=== PATIENT | female | born 1945 | race Caucasian/White ===

== ENCOUNTER → 2018-03-01 | Outpatient (CLI) | payer MEDICARE, BC | END | disposition home or self-care (01) | LOC: MRI 09:51 | DX: M75.101 Unspecified rotator cuff tear or rupture of right shoulder, not specified as traumatic (principal); M19.011 Primary osteoarthritis, right shoulder; S43.401A Unspecified sprain of right shoulder joint, initial encounter; M25.411 Effusion, right shoulder; M24.011 Loose body in right shoulder | CPT/HCPCS: 73221 ==

== ENCOUNTER → 2018-03-27 | Outpatient (CLI) | payer MEDICARE, BC ==
[~2018-03-27] MED LIST: AMLO5TAB2 PO; ASPI81TA50 PO; ATEN25TA PO; ATORVASTATIN CA80 MG PO; DOCU-150 PO; EZET10TA18 PO; FURO40TA4 PO; LOSA1TAB22 PO; METF500T5 PO; MULT1TAB52 PO; OMEG1CAP6 PO
[2018-03-27 10:44] LABS: BASO % 1 % (0-3); EOS # 0.2 x10^3/uL (0.0-0.7); EOS % 3 % (0-3); HEMOGLOBIN 13.7 g/dL (12.0-15.5); LYMPH # 1.5 x10^3/uL (1.0-4.8); LYMPH % 21 % (24-48); MEAN CORPUSCULAR HEMOGLOBIN 33 pg (25-35); MEAN CORPUSCULAR HGB CONC 33 g/dL (31-37); MEAN CORPUSCULAR VOLUME 98 fL (79-100); MONO # 0.7 x10^3/uL (0.0-1.1); MONO % 10 % (0-9); NEUT # 4.9 x10^3uL (1.8-7.7); NEUT % 67 % (31-73); PLATELET COUNT 206 x10^3/uL (140-400); RED BLOOD COUNT 4.17 x10^6/uL (3.50-5.40); RED CELL DISTRIBUTION WIDTH 13.5 % (11.5-14.5); WHITE BLOOD COUNT 7.3 x10^3/uL (4.0-11.0)
[2018-03-27 10:54] LABS: ALBUMIN 3.9 g/dL (3.4-5.0); CALCIUM 10.2 mg/dL (8.5-10.1); CREATININE 0.9 mg/dL (0.6-1.0); GFR 61.2; POTASSIUM 3.7 mmol/L (3.5-5.1)
[2018-03-27 11:09] LABS: BILIRUBIN,URINE NEGATIVE (NEG); CLARITY,URINE CLEAR; COLOR,URINE YELLOW; NITRITE,URINE NEGATIVE (NEG); PH,URINE 7.5; PROTEIN,URINE NEGATIVE (NEG-TRACE); UROBILINOGEN,URINE 0.2 mg/dL (0.2 mg/dL)
[2018-03-27 11:11] LABS: PROTHROMBIN TIME PATIENT 12.2 SEC (11.7-14.0)
[2018-03-27 12:01] LABS: BACTERIA,URINE 0 /HPF (0-FEW); RBC,URINE 0 /HPF (0-2); SQUAMOUS EPITHELIAL CELL,UR FEW /LPF; WBC,URINE 0 /HPF (0-4)
--- NOTE | 2018-03-27 12:04 | RAD ---
EXAM: Chest, 2 views. HISTORY: Pain. Preoperative evaluation. COMPARISON: None. FINDINGS: 2 views of the chest are obtained. There is linear lingular atelectasis or scarring. There is left infrahilar opacity likely due to atelectasis. There is no pleural effusion or pneumothorax. There is a prominent cardiac silhouette. There is S-shaped thoracolumbar scoliosis. IMPRESSION: 1. Suspected left infrahilar atelectasis and lingular atelectasis or scarring. 2. Prominent cardiac silhouette. Electronically signed by: Marlyn Mckenzie MD (03/27/2018 12:00 PM) [facility]
[2018-03-28 02:16] LABS: HEMOGLOBIN A1C 5.5 % (4.8-5.6)
== END | disposition home or self-care (01) ==
LOC: SURGPAT 10:18
PROVIDERS: ATTEND Orthopaedic Surgery Sports Medicine
DX: M41.85 Other forms of scoliosis, thoracolumbar region (principal); M19.011 Primary osteoarthritis, right shoulder
CPT/HCPCS: 36415; 71046; 80048; 81001; 82040; 83036; 85025; 85610; 85651; 85730; 87641

== ENCOUNTER 2018-04-10 05:47 | Inpatient (IN) | payer MEDICARE, BC ==
[2018-04-10] VITALS (8 sets, daily range): BP systolic 98–126; BP diastolic 52–67
[~2018-04-10] VITALS: Ht 152.4 cm; Wt 78.0 kg
[~2018-04-10 05:47] MED LIST changes: -AMLO5TAB2 PO; +AMLO5TAB7 PO; +METF500T16 PO; -METF500T5 PO
[2018-04-10] MEDS ORDERED: TV=100ml MORPHINE 5 MG, KETOROLAC 30 MG, ROPIVacaine 0.5% PF 60 ML, EPINEPH... INT ART ONE ×5 (06:00)
[2018-04-10] MEDS ORDERED: TRANEXAMIC ACID 1,000 MG in IV NS 50ML -- 1ST BAG INJ ONE (06:00)
[2018-04-10] MEDS ORDERED: HYDROcodone/APAP 7.5/325MG 1 TAB TABLET PO PRN (06:00)
[2018-04-10] MEDS ORDERED: MELOXICAM 7.5 MG TABLET PO PRN (06:00)
[2018-04-10] MEDS: IV RINGERS,LACTATED 1000ML 1,000 ML IV SCH ×2 (06:44→10:15)
[2018-04-10] MEDS ORDERED: PROCHLORPERAZINE 10 MG/2 ML VIAL. IV PRN (07:00)
[2018-04-10] MEDS ORDERED: MORPHINE SULFATE 2 MG/ML VIAL. IV PRN (07:00)
[2018-04-10] MEDS ORDERED: ONDANSETRON PF 4 MG/2 ML VIAL. IV PRN (07:00)
[2018-04-10] MEDS ORDERED: HYDROmorphone 2 MG/ML VIAL IV PRN (07:00)
[2018-04-10] MEDS ORDERED: LIDOCAINE 1% PF 2 ML VIAL. ID PRN (07:00)
[2018-04-10] MEDS ORDERED: fentaNYL PF VIAL 100 MCG/2 ML VIAL IV PRN ×2 (07:00)
[2018-04-10] MEDS ORDERED: fentaNYL PF VIAL 100 MCG/2 ML VIAL ONE (07:02)
[2018-04-10] MEDS ORDERED: PROPOFOL 20 ML IV ONE (07:02)
[2018-04-10] MEDS ORDERED: ROCURONIUM 50 MG/5 ML VIAL. ONE (07:03)
[2018-04-10] MEDS: IV DEXTROSE 5 %-0.45 % NACL 1,000 ML IV SCH ×2 (07:03→17:03)
[2018-04-10] MEDS ORDERED: ONDANSETRON PF 4 MG/2 ML VIAL. ONE (07:05)
[2018-04-10] MEDS ORDERED: DEXAMETHASONE SOD PHOS 20 MG/5 ML VIAL. ONE ×2 (07:05→07:22)
[2018-04-10] MEDS ORDERED: oxyCODONE/APAP 5/325 1 TAB TABLET PO PRN (07:15)
[2018-04-10] MEDS ORDERED: METOCLOPRAMIDE HCL 10 MG/2 ML VIAL. IV PRN (07:15)
[2018-04-10] MEDS ORDERED: oxyCODONE/APAP 7.5/325 1 TAB TABLET PO PRN (07:15)
[2018-04-10] MEDS ORDERED: ZOLPIDEM 5 MG TABLET. PO PRN (07:15)
[2018-04-10] MEDS ORDERED: 0.9 % SODIUM CHLORIDE 10 ML DISP.SYRIN. IV PRN (07:15)
[2018-04-10] MEDS ORDERED: ceFAZolin SODIUM 1 GM in IV DEXTROSE 5% 50 ML IV SCH (07:15)
[2018-04-10] MEDS ORDERED: PROCHLORPERAZINE 5 MG TABLET. PO PRN (07:15)
[2018-04-10] MEDS ORDERED: ACETAMINOPHEN 325 MG TABLET. PO PRN (07:15)
[2018-04-10] MEDS ORDERED: HYDROcodone/APAP 10/325 1 TAB TABLET PO PRN (07:15)
[2018-04-10] MEDS ORDERED: DEXTROSE 50% 25 GM / 50ML DISP.SYRIN. IV PRN (07:15)
[2018-04-10] MEDS ORDERED: traMADol 50 MG TABLET PO PRN ×2 (07:15)
[2018-04-10] MEDS ORDERED: CALCIUM CARBONATE 500 MG TAB.CHEW PO PRN (07:15)
[2018-04-10] MEDS ORDERED: MIDAZOLAM HCL/PF 2 MG/2 ML VIAL. ONE (07:21)
[2018-04-10] MEDS ORDERED: ROPIVacaine 0.2% IN 0.9%NACL PF 40 MG/20 ML DISP.SYRIN. ONE (07:22)
[2018-04-10] MEDS ORDERED: ePHEDrine PF IN SALINE 50 MG/5 ML DISP.SYRIN IV ONE (07:51)
[2018-04-10] MEDS ORDERED: PHENYLEPHRINE 10 MG/ML VIAL. ONE (07:59)
[2018-04-10] MEDS: metFORMIN 500 MG TABLET PO SCH ×2 (08:00→16:47)
[2018-04-10] MEDS ORDERED: TRANEXAMIC ACID 1,000 MG in IV NS 50ML -- 2ND BAG INJ ONE (08:00)
[2018-04-10] MEDS ORDERED: TRANEXAMIC ACID 1,000 MG/10 ML VIAL. INJ ONE ×2 (08:12→09:45)
[2018-04-10] MEDS ORDERED: ATROPINE 1 MG/10 ML DISP.SYRINGE. ONE (08:24)
[2018-04-10] MEDS: hydroCHLOROthiazide 25 MG TABLET PO SCH (09:00)
[2018-04-10] MEDS ORDERED: MULTIVITAMIN with MINERAL TABLET. PO SCH (09:00)
[2018-04-10] MEDS: SENNOSIDES/DOCUSATE 8.6/50MG TABLET. PO SCH (09:00)
[2018-04-10] MEDS: ATENOLOL 25 MG TABLET. PO SCH (09:00)
[2018-04-10] MEDS: LOSARTAN POTASSIUM 50 MG TABLET. PO SCH (09:00)
[2018-04-10] MEDS: amLODIPine BESYLATE 5 MG TABLET PO SCH (09:00)
[2018-04-10] MEDS: DOCUSATE SODIUM 100 MG CAPSULE. PO SCH ×2 (09:00→20:43)
[2018-04-10] MEDS: FUROSEMIDE 40 MG TABLET. PO SCH (09:00)
[2018-04-10] MEDS: MULTIVITAMIN with MINERAL TABLET. PO SCH (09:00)
[2018-04-10] MEDS ORDERED: SEVOFLURANE > 120 MINUTES. IH ONE (09:18)
[2018-04-10] MEDS ORDERED: GLYCOPYRROLATE 1 MG/5 ML VIAL. ONE ×2 (09:18)
[2018-04-10] MEDS ORDERED: NEOSTIGMINE METHYLSULFATE 5 MG/5 ML SYRINGE. ONE (09:18)
--- NOTE | 2018-04-10 10:32 | PDOC4 ---
Operative Note Operative Note Date of procedure: 04/10/2018 Surgeon: Roni Stapleton Internal Communications Manager: Jono Dolan, advanced practice registered nurse Preoperative diagnosis: Right shoulder rotator cuff tear and advanced glenohumeral degenerative joint disease Postoperative diagnosis: Same Procedure performed: Right reverse total shoulder arthroplasty Anesthesia: Gen. plus regional nerve block Blood loss: 200 mL Competitions: None Components inserted: Tornier Reason for procedure: Patient is a very pleasant 73-year-old female with rotator cuff disease and advanced glenohumeral arthritis. Preoperative imaging and clinical exam are consistent with the above preoperative diagnoses. After reviewing the MRI I discussed proceeding with a reverse total shoulder with the patient and she wished to proceed. Description of procedure: Patient was greeted in the preoperative holding area where the correct extremity was verified and marked. She had a regional nerve block placed by the anesthesiology team and was brought back to the operating room and her antibiotics were started as she was brought back. Once in the operative room, she was transferred gently supine to the operating table and secured to bed with all pressure points padded. We set her up in a beachchair position maintaining her C-spine in neutral position and securing her to the bed., Large pad under her legs. After this, we proceeded prep and drape right upper extremity in our usual sterile fashion and conducted our standard preoperative timeout. I then palpated and marked surface anatomy and zander a line and then made my standard anterior deltopectoral skin incision over her shoulder. I incised skin with a scalpel and dissected subcutaneous tissue with a combination of Metzenbaums and electrocautery. Identified her deltopectoral interval and mobilized this taking the cephalic vein laterally. I used blunt dissection in the subdeltoid space to free up adhesions. After this, I identified her bicipital groove and performed a biceps tenodesis in situ and then cut the biceps tendon and followed up proximally opening at the bicipital groove and rotator interval. I then cut the remainder the biceps tendon with a curved Villegas scissors. I then took down her subscapularis with electrocautery, taking it for later repair as I went. I then used a Darron to remove osteophytes to identify her joint line. I used a small Zhao elevator along the inferior border to make sure accomplish a complete release. After this I made my saw cut and delivered the humeral head from the operative field. I then used a circumferential scalpel around the glenoid to accomplish my releases and I then palpated along the rim of the glenoid with the [place] elevator to make sure I had done so. I then placed my Bankart and Fukuda retractors and identified the midportion of her glenoid with the guide in inserted the guidepin. I then reamed over this followed by the peripheral reamer to make sure I removed all excess bone and soft tissue. I then used Rominger to remove some remaining labrum. I inspected my glenoid and irrigated out the operative field. I was happy with my exposure and then I drilled for my baseplate peg and impacted my baseplate into position after irrigating out the operative field again. I secured it with 2 screws, superior inferior, she was too small for anterior and posterior screws. After this, I directed my attention to the proximal humerus and removed my glenoid retractors and placed my Darrach retractors. I then used the sounds followed by the broaches up to a size 3 which gave a good fit and fill. I referenced her normal retroversion while doing so.. I then impacted my stem into place after irrigating out the canal and then trialed different baseplate's and polyethylene thicknesses. I felt the above combination gave the best stability and range of motion. I then impacted my baseplate in position and irrigated out the operative field again and then impacted my polyethylene and reduced the shoulder. I was happy with the range of motion. Prior to this, I had placed Ethibond through bone to help secure the subscapularis repair. I then performed my subscapularis repair and repaired my rotator interval as well. After this, I closed the deltopectoral interval with running 0 Vicryl. I then injected my. Articular mixture into the pham-incisional soft tissues. Prior to wound closure, all counts correct 2. The wound closure was finished with inverted interrupted 2-0 Vicryl followed by running 4-0 Monocryl in subcuticular fashion. The arm was cleansed and dried and a sterile dressing was applied followed by an abduction pillow sling. Patient tolerated surgery well. The conclusion, she was laid gently supine and transferred gently supine to the hospital bed and taken to the PACU in a stable and extubated condition. Postoperative plan is to admit her to the joint Center for care and observation. She received antibiotic prophylaxis and begin a rehabilitation. RONI STAPLETON II, MD Apr 10, 2018 10:32
--- NOTE | 2018-04-10 10:59 | RAD ---
Right shoulder, 2 views, 04/10/2018: HISTORY: Postop evaluation A right reverse total shoulder arthroplasty has been performed. Surgical skin clips overlie the operative site. There is no evidence of a retained surgical instrument, needle or radiopaque sponge on these 2 views. Electronically signed by: Sridhar Antunez MD (04/10/2018 10:55 AM) [facility]
[2018-04-10] MEDS: INSULIN LISPRO 300 UNITS/3 ML INSULN.PEN. SQ SCH ×2 (12:02→16:49)
[2018-04-10] MEDS: ceFAZolin SODIUM IV Push 1 GM VIAL. IVP SCH ×2 (15:14→20:02)
[2018-04-10] MEDS: FERROUS SULFATE 325 MG TABLET. PO SCH (16:48)
[2018-04-10] MEDS: HYDROcodone/APAP 7.5/325MG 1 TAB TABLET PO PRN (20:09)
[2018-04-10] MEDS: CELECOXIB 100 MG CAPSULE. PO SCH (20:43)
[2018-04-10] MEDS ORDERED: EZETIMIBE 10 MG TABLET. PO SCH (21:00)
[2018-04-10] MEDS ORDERED: ATORVASTATIN CALCIUM 40 MG TABLET. PO SCH (21:00)
[2018-04-11] MEDS: ceFAZolin SODIUM IV Push 1 GM VIAL. IVP SCH (02:18)
[2018-04-11] MEDS: HYDROcodone/APAP 7.5/325MG 1 TAB TABLET PO PRN ×3 (02:26→12:53)
[2018-04-11 02:32] VITALS: BP 134/71
[2018-04-11] MEDS: IV DEXTROSE 5 %-0.45 % NACL 1,000 ML IV SCH (03:03)
[2018-04-11] MEDS ORDERED: MAGNESIUM HYDROXIDE 2,400 MG/30 ML ORAL.SUSP. PO PRN (06:00)
[2018-04-11 06:14] VITALS: BP 137/76
[2018-04-11] MEDS: MULTIVITAMIN with MINERAL TABLET. PO SCH (07:57)
[2018-04-11] MEDS: CELECOXIB 100 MG CAPSULE. PO SCH (07:57)
[2018-04-11] MEDS: SENNOSIDES/DOCUSATE 8.6/50MG TABLET. PO SCH (07:57)
[2018-04-11] MEDS: DOCUSATE SODIUM 100 MG CAPSULE. PO SCH (07:57)
[2018-04-11] MEDS: FERROUS SULFATE 325 MG TABLET. PO SCH (07:57)
[2018-04-11] MEDS: metFORMIN 500 MG TABLET PO SCH (07:57)
[2018-04-11] MEDS: ATENOLOL 25 MG TABLET. PO SCH (07:58)
[2018-04-11] MEDS: LOSARTAN POTASSIUM 50 MG TABLET. PO SCH (07:58)
[2018-04-11] MEDS: amLODIPine BESYLATE 5 MG TABLET PO SCH (07:59)
[2018-04-11] MEDS: hydroCHLOROthiazide 25 MG TABLET PO SCH (07:59)
[2018-04-11] MEDS: INSULIN LISPRO 300 UNITS/3 ML INSULN.PEN. SQ SCH ×2 (08:00→12:00)
--- NOTE | 2018-04-11 08:58 | DISCH ---
DISCHARGE INSTRUCTIONS Condition on Discharge Condition on Discharge: Stable Activity After Discharge Activity Instructions for Disc: Other, see below Other activity instructions: arm to remain Bathing Instructions: Shower-keep dressing dry Weight Bearing Status after Di: Non weight bearing Diet after Discharge Diet after Discharge: Regular Wound Incision Care Wound/Incision Care: Ice to area for comfort, Do not change dressing Contacting the DROsmar after DC Call your doctor for: Concerns you may have Follow-Up Follow up with: Endy in 2 wks IWONA STAPLETON II, MD Apr 11, 2018 08:58
[2018-04-11] MEDS: FUROSEMIDE 40 MG TABLET. PO SCH (09:00)
--- NOTE | 2018-04-11 09:05 | PDOC ---
ORTHO PROGRESS NOTES Subjective Pain tolerable, no numbness/tingling. Tolerating diet Vitals Vital Signs Date Time Temp Pulse Resp B/P (MAP) Pulse Ox O2 Delivery O2 Flow Rate FiO2 04/11/18 07:59 Room Air 04/11/18 07:59 71 129/65 04/11/18 06:14 97.8 17 95 97.8 04/10/18 13:50 2.0 Labs Laboratory Tests Test 04/10/18 06:48 04/10/18 11:00 04/10/18 16:34 04/10/18 20:47 Glucose (Fingerstick) 85 mg/dL (70-99) 100 mg/dL (70-99) 98 mg/dL (70-99) 117 mg/dL (70-99) Test 04/11/18 06:36 Glucose (Fingerstick) 110 mg/dL (70-99) Laboratory Tests Test 04/10/18 11:00 04/10/18 16:34 04/10/18 20:47 04/11/18 06:36 Glucose (Fingerstick) 100 mg/dL (70-99) 98 mg/dL (70-99) 117 mg/dL (70-99) 110 mg/dL (70-99) Notes A and A RUE in sling, normal motor and sensation Assessment and Plan ok to go home f/u in 2 wks IWONA STAPLETON II, MD Apr 11, 2018 09:05
--- NOTE | 2018-04-11 09:32 | PDOC3 ---
Discharge Summary Visit Information Date of Admission: Apr 10, 2018 Date of Discharge: Apr 11, 2018 Admitting Diagnosis: advanced primary right shoulder degenerative joint disea Brief Hospital Course Allergies Allergies Coded Allergies Type Severity Reaction Last Updated Verified No Known Drug Allergies 04/10/18 No Vital Signs Vital Signs Date Time Temp Pulse Resp B/P (MAP) Pulse Ox O2 Delivery O2 Flow Rate FiO2 04/11/18 07:59 Room Air 04/11/18 07:59 71 129/65 04/11/18 06:14 97.8 17 95 97.8 04/10/18 13:50 2.0 Lab Results Laboratory Tests Test 04/10/18 06:48 04/10/18 11:00 04/10/18 16:34 04/10/18 20:47 Glucose (Fingerstick) 85 mg/dL (70-99) 100 mg/dL (70-99) 98 mg/dL (70-99) 117 mg/dL (70-99) Test 04/11/18 06:36 Glucose (Fingerstick) 110 mg/dL (70-99) Laboratory Tests Test 04/10/18 11:00 04/10/18 16:34 04/10/18 20:47 04/11/18 06:36 Glucose (Fingerstick) 100 mg/dL (70-99) 98 mg/dL (70-99) 117 mg/dL (70-99) 110 mg/dL (70-99) Brief Hospital Course Ms. Marshall is a 73 old female who presented with right shoulder pain to my orthopedic surgery clinic. She had tried and failed conservative therapies. Please see my outpatient notes for further details. She tried physical therapy, anti-inflammatories and corticosteroids. Clinical and preoperative examination including MRI were reviewed and interpreted by myself. Given her pain and failure conservative therapies we discussed proceeding with operative intervention in the form of reverse total shoulder and she wished to proceed. She tolerated surgery well cover well from anesthesia in the PACU. She is taken up to the joint Center for care and observation. Her postoperative course was essentially uneventful. Her pain is controlled on oral pain medicine and she was tolerating regular diet at time of discharge. Incision was clean dry and intact. Normal motor and sensation were present and the operative extremity. She was tolerating regular diet and was having normal bowel and bladder function. She remained hemodynamically stable and afebrile throughout her hospitalization. She did receive instruction home exercise program from physical therapy as well. Discharge Information Condition at Discharge: Stable Follow Up: Weeks Disposition/Orders: D/C to Home Scheduled Amlodipine Besylate (Amlodipine Besylate) 5 Mg Tablet, 5 MG PO DAILY, (Reported) Entered as Reported by: LESLEY ESTRADA on 03/27/181033 Last Taken: Unknown Dose on 04/10/18 0043 Last Action: Continued on 702 by ALIS STAPLETON MD Aspirin (Aspir-Low) 81 Mg Tablet.dr, 2 TAB PO DAILY, #30 Ref 3 (Reported) Entered as Reported by: LESLEY ESTRADA on 03/27/181033 Last Taken: Unknown Dose on 03/29/18 Last Action: HELD on 04/10/18702 by ALIS STAPLETON MD Atenolol (Atenolol) 25 Mg Tablet, 1 TAB PO DAILY, #30 Ref 5 (Reported) Entered as Reported by: LESLEY ESTRADA on 03/27/181033 Last Taken: Unknown Dose on 04/10/18 0430 Last Action: Converted on 702 by ALIS STAPLETON MD Atorvastatin Calcium (Atorvastatin Calcium) 80 Mg Tablet, 1 TAB PO DAILY, #30 Ref 5 (Reported) Entered as Reported by: LESLEY ESTRADA on 03/27/181033 Last Taken: Unknown Dose on 04/09/18 Last Action: Converted on 04/10/18702 by ALIS STAPLETON MD Ezetimibe (Zetia) 10 Mg Tablet, 1 TAB PO HS, #30 Ref 5 (Reported) Entered as Reported by: LESLEY ESTRADA on 03/27/181033 Last Taken: Unknown Dose on 04/09/18 Last Action: Continued on 04/10/18702 by ALIS STAPLETON MD Furosemide (Furosemide) 40 Mg Tablet, 1 TAB PO DAILY, #30 Ref 5 (Reported) Entered as Reported by: LESLEY ESTRADA on 03/27/181033 Last Taken: Unknown Dose on 04/08/18 Last Action: Continued on 04/10/18702 by ALIS STAPLETON MD Losartan/Hydrochlorothiazide (Losartan-Hctz 100-25 Mg Tab) 1 Each Tablet, 1 TAB PO DAILY, #30 Ref 5 (Reported) Entered as Reported by: LESLEY ESTRADA on 03/27/18 103 Last Taken: Unknown Dose on 04/10/18 0430 Last Action: Converted on 702 by ALIS STAPLETON MD Metformin Hcl (Metformin Hcl) 500 Mg Tablet, 500 MG PO BIDWMEALS for ANTI- DIABETIC, Ref 0 (Reported) Entered as Reported by: LESLEY ESTRADA on 03/27/18 103 Last Taken: Unknown Dose on 04/09/18 Last Action: Converted on 04/10/18702 by ALIS STAPLETON MD Multivitamin (Multivitamins) 1 Each Tablet, 1 TAB PO DAILY, #90 Ref 3 (Reported) Entered as Reported by: LESLEY ESTRADA on 03/27/181033 Last Taken: Unknown Dose on 03/29/18 Last Action: Converted on 04/10/18702 by ALIS STAPLETON MD Miscellaneous Medications Docusate Sodium (Stool Softener) 100 Mg Capsule, 100 MG PO, (Reported) Entered as Reported by: LESLEY ESTRADA on 03/27/18 103 Last Taken: Unknown Dose on 04/09/18 Last Action: Continued on 04/10/18702 by ALIS STAPLETON MD [place]-3 Fatty Acids/Fish Oil (Fish Oil 1,000 Mg Capsule) 1 Each Capsule, 2 EACH PO, (Reported) Entered as Reported by: LESLEY ESTRADA on 03/27/18 1031 Last Taken: Unknown Dose on 03/29/18 Last Action: HELD on 04/10/18702 by ALIS STAPLETON MD Patient Instructions Patient Instructions She'll be discharged home, nonweightbearing, she will use a sling for 6 weeks. We'll get her started on outpatient physical therapy when I see her back in my clinic in 2 weeks. Worrisome signs and symptoms that should prompt a phone call to my office were discussed with her questions were answered. IWONA STAPLETON II, MD Apr 11, 2018 09:32
[2018-04-11 10:28] LABS: HEMATOCRIT 34.3 % (36.0-47.0); HEMOGLOBIN 11.8 g/dL (12.0-15.5)
[2018-04-11 11:15] VITALS: BP 134/76
[2018-04-11] MEDS ORDERED: BISACODYL 10 MG SUPP.RECT. PR PRN (16:00)
== END 2018-04-11 13:49 | disposition home or self-care (01) | DRG 483 ==
LOC: OPSVCIP 05:47 → 4 SOUTHEST 11:24
PROVIDERS: ADMIT Orthopaedic Surgery Sports Medicine; ATTEND Orthopaedic Surgery Sports Medicine
PROC: 0RRJ00Z Replacement of Right Shoulder Joint with Reverse Ball and Socket Synthetic Substitute, Open Approach (ICD-10-PCS; principal; 2018-04-10 07:30)
DX: M19.011 Primary osteoarthritis, right shoulder (principal); M75.101 Unspecified rotator cuff tear or rupture of right shoulder, not specified as traumatic; Z96.659 Presence of unspecified artificial knee joint; Z90.710 Acquired absence of both cervix and uterus; I25.2 Old myocardial infarction
CPT/HCPCS: 36415; 73030; 82962; 85014; 85018; 86850; 86900; 86901; C1713; J0171; J0461; J0690; J1100; J1815; J1885; J2250; J2270; J2405; J2704; J2710; J2795; J3010; J3490; J7030; J7120; 97110; 97116; 97530; 97535; C1769